=== PATIENT | female | born 1965 | race African-American/Black ===

== ENCOUNTER 2020-07-25 09:12 | Inpatient (IN) | payer OTHER ==
[2020-07-25] VITALS (24 sets, daily range): BP systolic 0–139; BP diastolic 0–93
[~2020-07-25] VITALS: Ht 160 cm; Wt 68.0 kg
[2020-07-25] MEDS ORDERED: Lidocaine 1% Plain 30 ml INJ ONE (09:22)
--- NOTE | 2020-07-25 09:51 | Emergency Room Report ---
History of Present Illness General Chief Complaint: Abnormal Labs Source: Patient, Family Member, EMS Present Illness HPI This patient is brought in by EMS for critically low blood sugar. The patient was unable to give a useful history. Per EMS, the patient had a blood sugar of 31 on their arrival and was sleepy but arousable to answer simple questions. She was given oral glucose and glucagon by EMS. I was able to contact the patient's daughter who lives with her. The daughter reports that her mother was in her normal state of health until November whenever she suffered a bowel obstruction. She was admitted to [facility] and had to undergo bowel surgery. She s tates that since that time she has had difficulty with poor oral intake and failure to thrive. She states that she was released from a rehab facility 2 weeks ago and had been doing well until the last week. She states that over the past week she has started to stop eating again as she had done previously. She states that she had been admitted to [facility] for 3 weeks prior to her stay in the rehab facility for the same issues of not eating. The daughter states that she had a "upper GI"issue but was unable to articulate what type of upper GI issue. The daughter states that there are no other medical problems. The patient herself did complain of some cramping in her legs during her ED course. Otherwise, the patient was arousable but altered. Allergies: Coded Allergies: No Known Allergies (Unverified , 07/25/20) COVID-19 Screening Contact w/high risk pt: No Experienced COVID-19 symptoms?: No COVID-19 Testing performed PATIENT INFORMATION COORDINATOR: No Patient History Past Medical History: see triage record, other - FTT, poor intake, hx of SBO Social History: Denies: smoking, alcohol use, drug use Last Menstrual Period: na Reviewed Nursing Documentation: PMH: Agreed; PSxH: Agreed Nursing Documentation-PMH Past Medical History: No Stated History Review of Systems All Other Systems: negative except mentioned in HPI Physical Exam Vital Signs Date Time Temp Pulse Resp B/P (MAP) Pulse Ox O2 Delivery O2 Flow Rate FiO2 07/25/20 09:05 97.5 127 20 88/62 (71) 98 Room Air Sp02 EP Interpretation: reviewed, normal General Appearance: no apparent distress, GCS 15, lethargic, Chronically Ill Head: normocephalic, atraumatic Eyes: bilateral eye normal inspection, bilateral eye PERRL ENT: hearing grossly normal, normal pharynx, no angioedema, normal voice, other - swollen, peeling lips Neck: normal inspection, full range of motion Respiratory: chest non-tender, lungs clear, normal breath sounds, no respiratory distress, no retraction, no accessory muscle use, speaking full sentences Cardiovascular #1: tachycardia, edema - BLE 3+ pitting edema Gastrointestinal: non tender, soft, no guarding, no rebound Rectal: deferred Musculoskeletal: back normal, normal range of motion, tender, swelling - BLE Neurologic: alert, motor strength/tone normal, sensory intact, responsive, speech normal Psychiatric: judgement/insight normal, memory normal, mood/affect normal, no suicidal/homicidal ideation Skin: other - anasarca Medical Decision Making Diagnostic Impression: Primary Impression: SBO (small bowel obstruction) Additional Impressions: Hypotension Lactic acid acidosis ARF (acute renal failure) Hypothyroid Pancytopenia ER Course This patient is critically ill. On arrival, the patient was hypotensive, altered but would respond appropriately to questions. The staff was having difficulty obtaining a peripheral IV line. Therefore, I placed a triple-lumen central catheter in the patient's IJ for emergency access and profound hypotension. Please see my procedure note. The patient was found to have a small bowel obstruction, severe lactic acidosis, pancytopenia, acute renal failure and hypothyroidism. The patient was given aggressive IV fluids, IV dextrose repeatedly and placed on an IV dextrose drip. The patient remained hypotensive and a Levophed drip was started to maintain blood pressure. Patient was given broad-spectrum antibiotics as a precaution. I am concerned this patient has ischemic bowel related to her small bowel obstruction. An NG tube was placed and the patient was also given IV levothyroxine. Patient has a very poor prognosis. She did remain alert and oriented and without any respiratory difficulty during her ED course. Therefore, patient did not need intubation. The patient also had ulceration of the posterior aspect of her skin consistent with chronic pressure. This patient will be admitted to the ICU. This patient is critically ill. This patient required complex medical decision- making, aggressive intervention, extensive laboratory workup and monitoring. Critical care time: 40 minutes. This patient was evaluated in the context of the global COVID-19 pandemic, which necessitated consideration that the patient might be at risk for infection with the [id number] virus that causes COVID-19. Institutional protocols and algorithms that pertain to the evaluation of patients at risk for COVID-19 and the state of rapid change based on information released by multiple regulatory bodies including the CDC and federal and state organizations. These policies and algorithms were followed during the patient's care in the ED. Laboratory Tests Test 07/25/20 09:55 07/25/20 10:26 07/25/20 10:47 07/25/20 12:18 Sodium Level 134 MMOL/L (136-145) L Potassium Level 3.5 MMOL/L (3.5-5.1) Chloride Level 100 MMOL/L (98-107) Carbon Dioxide Level 17 MMOL/L (21-32) L Anion Gap 17 mmol/L (5-15) H Blood Urea Nitrogen 7 mg/dL (7-18) Creatinine 2.2 MG/DL (0.55-1.30) H Estimated Glomerular Filtration Rate 28.1 mL/min (>60) Glucose Level 299 MG/DL (74-106) H Lactic Acid Level 15.80 mmol/L (0.4-2.0) H Calcium Level 7.1 MG/DL (8.5-10.1) L Phosphorus Level 3.4 MG/DL (2.5-4.9) Magnesium Level 1.6 MG/DL (1.8-2.4) L Ferritin 765 NG/ML (8-388) H Total Bilirubin 6.2 MG/DL (0.2-1.0) H Direct Bilirubin 5.7 MG/DL (0.0-0.3) H Aspartate Amino Transferase (AST) 37 U/L (15-37) Alanine Aminotransferase (ALT) 27 U/L (12-78) Alkaline Phosphatase 286 U/L (46-116) H Lactate Dehydrogenase 211 U/L (81-234) Total Creatine Kinase 21 U/L (26-308) L Creatine Kinase MB 0.7 NG/ML (0.0-3.6) Creatine Kinase MB Relative Index 3.3 Troponin I 0.002 ng/mL (0.000-0.056) C-Reactive Protein, Quantitative 21.0 mg/dL (0.00-0.90) H Pro-B-Type Natriuretic Peptide > 79295 pg/mL (0-125) H Total Protein 2.9 G/DL (6.4-8.2) L Albumin 0.8 G/DL (3.4-5.0) L Globulin 2.1 g/dL Albumin/Globulin Ratio 0.4 (1.0-2.7) L Lipase 10 U/L (73-393) L POC Whole Blood Glucose 160 MG/DL (74-106) H White Blood Count 1.0 K/UL (4.8-10.8) *L Red Blood Count 2.20 M/UL (4.20-5.40) L Hemoglobin 7.5 G/DL (12.0-16.0) L Hematocrit 24.2 % (37.0-47.0) L Mean Corpuscular Volume 110 FL (80-99) H Mean Corpuscular Hemoglobin 33.9 PG (27.0-31.0) H Mean Corpuscular Hemoglobin Concent 30.9 G/DL (32.0-36.0) L Red Cell Distribution Width 20.6 % (11.6-14.8) H Platelet Count 56 K/UL (150-450) L Mean Platelet Volume 7.9 FL (6.5-10.1) Neutrophils (%) (Auto) % (45.0-75.0) Lymphocytes (%) (Auto) % (20.0-45.0) Monocytes (%) (Auto) % (1.0-10.0) Eosinophils (%) (Auto) % (0.0-3.0) Basophils (%) (Auto) % (0.0-2.0) Differential Total Cells Counted 100 Neutrophils % (Manual) 13 % (45-75) L Lymphocytes % (Manual) 68 % (20-45) H Monocytes % (Manual) 10 % (1-10) Eosinophils % (Manual) 0 % (0-3) Basophils % (Manual) 0 % (0-2) Metamyelocytes % 1 % (0-0) H Band Neutrophils 8 % (0-8) Nucleated Red Blood Cells 22 /100 WBC Platelet Estimate Decreased L Platelet Morphology Normal Polychromasia 1+ Hypochromasia 2+ Poikilocytosis 1+ Anisocytosis 2+ Macrocytosis 3+ Prothrombin Time 27.4 SEC (9.30-11.50) H Prothrombin Time INR 2.7 (0.9-1.1) H Activated Partial Thromboplast Time 80 SEC (23-33) H D-Dimer 1.95 mg/L FEU (0.00-0.49) H Thyroid Stimulating Hormone (TSH) 0.199 uiU/mL (0.358-3.740) Free Thyroxine 0.20 NG/DL (0.76-1.46) L Urine Color Brown Urine Appearance Slightly cloudy Urine pH 5 (4.5-8.0) Urine Specific [place] 1.010 (1.005-1.035) Urine Protein 2+ (NEGATIVE) H Urine Glucose (UA) Negative (NEGATIVE) Urine Ketones Negative (NEGATIVE) Urine Blood 1+ (NEGATIVE) H Urine Nitrite Negative (NEGATIVE) Urine Bilirubin 2+ (NEGATIVE) H Urine Ictotest Positive (NEGATIVE) Urine Urobilinogen 1 MG/DL (0.0-1.0) H Urine Leukocyte Esterase 1+ (NEGATIVE) H Urine RBC 2-4 /HPF (0 - 2) H Urine WBC 2-4 /HPF (0 - 2) Urine Squamous Epithelial Cells Moderate /LPF (NONE/OCC) H Urine Bacteria Few /HPF (NONE) Urine Hyaline Casts 2-4 /LPF (NONE) H Urine Mucus Few /LPF (NONE/OCC) H Test 07/25/20 13:01 Lactic Acid Level Pending Microbiology Date/Time Source Procedure Growth Status 07/25/20 09:55 Nasal Nares - Final Complete 07/25/20 09:55 Nasal Nares - Final Complete 07/25/20 09:55 Nasopharynx SARS-CoV-2 RdRp Gene Assay - Final Complete EKG Diagnostic Results Rate: tachycardiac Rhythm: other - A.flutter ST Segments: other - NSST findings Other Impression A.flutter Rhythm Strip Diag. Results EP Interpretation: yes Rate: 120's Rhythm: no ectopy, other - S.tachycardia Chest X-Ray Diagnostic Results Chest X-Ray Diagnostic Results : Chest X-Ray Ordered: Yes # of Views/Limited/Complete: 1 View Indication: Other - Line placement EP Interpretation: Yes Interpretation: no consolidation, no effusion, no pneumothorax, no acute cardiopulmonary disease, other - Line deep but in R. heart. Impression: No acute disease Electronically Signed by: Jacqui Arita, CT/MRI/US Diagnostic Results CT/MRI/US Diagnostic Results : Imaging Test Ordered: CT abd/pelvis Impression IMPRESSION: SMALL BOWEL OBSTRUCTION. SEVERE FATTY LIVER. SUBCUTANEOUS SOFT TISSUE EDEMA ALONG THE FLANKS AND IN THE ABDOMINAL WALL S UGGESTIVE OF ANASARCA. Last Vital Signs Date Time Temp Pulse Resp B/P (MAP) Pulse Ox O2 Delivery O2 Flow Rate FiO2 07/25/20 09:05 97.5 127 20 88/62 (71) 98 Room Air Disposition: ADMITTED INPATIENT Condition: Critical Scripts Unable to Obtain Active Prescriptions or Reported Meds Jacqui Arita DO Jul 25, 2020 09:51
[2020-07-25 10:46] LABS: ANION GAP 17 mmol/L (5-15); BLOOD UREA NITROGEN 7 mg/dL (7-18); CALCIUM 7.1 MG/DL (8.5-10.1); CARBON DIOXIDE 17 MMOL/L (21-32); CHLORIDE 100 MMOL/L (98-107); CREATININE 2.2 MG/DL (0.55-1.30); POTASSIUM 3.5 MMOL/L (3.5-5.1); SODIUM 134 MMOL/L (136-145)
--- NOTE | 2020-07-25 10:55 | Diagnostic Imaging Report ---
EXAM: CT CT Abdomen Pelvis WO Contrast INDICATION: Dominant pain. COMPARISON: None TECHNIQUE: Axial images were obtained through the abdomen pelvis without intravenous contrast. Sagittal and coronal reformats are generated. All CT scans at this facility are performed using dose modulation techniques as appropriate to a performed exam including the following: automated exposure control with adjustment of the mA and/or kV according to patient size. RADIATION DOSE: CTDIvol: 6.8 mGy DLP: 371.8 mGy-cm Dose information generated by the CT scanner is available in PACS. FINDINGS: The lung bases are clear. There is diffuse fatty liver. The spleen is homogeneous. Gallbladder is without sludge or stone and there is no wall thickening. The pancreas is unremarkable. Adrenals are normal in morphology. The kidneys are normal in size, shape and axis. Postoperative changes of the stomach noted. Proximal small bowel is quite distended with air-fluid levels. There are also feculent material noted in the more distal distended loops. There is a transition to nondistended small bowel seen distally. Findings suggest small bowel obstruction. The colon is also nondistended with average amount of stool. The appendix is not visualized. There is no free fluid or free air. No pathologic adenopathy demonstrated. Urinary bladder appears unremarkable. There is an IUD in the uterus. Soft tissue edema noted along the flanks and in the abdominal wall perhaps some anasarca. IMPRESSION: SMALL BOWEL OBSTRUCTION. SEVERE FATTY LIVER. SUBCUTANEOUS SOFT TISSUE EDEMA ALONG THE FLANKS AND IN THE ABDOMINAL WALL SUGGESTIVE OF ANASARCA.
[2020-07-25 11:01] LABS: ALANINE AMINOTRANSFERASE 27 U/L (12-78); ALBUMIN 0.8 G/DL (3.4-5.0); ALBUMIN/GLOBULIN RATIO 0.4 (1.0-2.7); ALKALINE PHOSPHATASE 286 U/L (46-116); ASPARTATE AMINO TRANSFERASE 37 U/L (15-37); BILIRUBIN,TOTAL 6.2 MG/DL (0.2-1.0); CKMB 0.7 NG/ML (0.0-3.6); CREATINE KINASE 21 U/L (26-308); LACTATE DEHYDROGENASE 211 U/L (81-234); PHOSPHORUS 3.4 MG/DL (2.5-4.9)
[2020-07-25 11:09] LABS: HEMATOCRIT 24.2 % (37.0-47.0); HEMOGLOBIN 7.5 G/DL (12.0-16.0); MEAN CORPUSCULAR VOLUME 110 FL (80-99); PLATELET COUNT 56 K/UL (150-450); RED CELL DISTRIBUTION WIDTH 20.6 % (11.6-14.8)
[2020-07-25 11:16] LABS: INR 2.7 (0.9-1.1)
[2020-07-25 11:29] LABS: FERRITIN 765 NG/ML (8-388)
[2020-07-25 11:30] LABS: BILIRUBIN,DIRECT 5.7 MG/DL (0.0-0.3)
--- NOTE | 2020-07-25 11:36 | Diagnostic Imaging Report ---
Indication: Shortness of breath Technique: One view of the chest Comparison: none Findings: And right jugular central venous catheter, tip of which projects fairly deep within the right atrium. There are some atelectatic changes in the bilateral perihilar regions. No definite infiltrates, effusions, congestion. The heart size is normal. There is no pneumothorax Impression: Right jugular central venous catheter, tip fairly deep in the right atrium No acute process
[2020-07-25] MEDS ORDERED: D5 1/2NS 1,000 ML IV SCH ×2 (12:30→13:30)
[2020-07-25 12:51] LABS: APPEARANCE,URINE SLIGHTLY CLOUDY; BILIRUBIN, URINE 2+ (NEGATIVE); COLOR,URINE BROWN; GLUCOSE, URINE (UA) NEGATIVE (NEGATIVE); KETONES,URINE NEGATIVE (NEGATIVE); LEUKOCYTE ESTERASE ,URINE 1+ (NEGATIVE); NITRITE,URINE NEGATIVE (NEGATIVE); PH,URINE 5 (4.5-8.0); PROTEIN,URINE 2+ (NEGATIVE); UROBILINOGEN,URINE 1 MG/DL (0.0-1.0)
[2020-07-25] MEDS ORDERED: Nitroglycerin Subl 0.4mg tab SL PRN (13:30)
[2020-07-25] MEDS ORDERED: Miralax 17gm pkt ORAL PRN (13:30)
[2020-07-25] MEDS ORDERED: Phytonadione 10 MG in D5W 55 ML IVPB SCH (13:33)
--- NOTE | 2020-07-25 13:52 | Consultation ---
History of Present Illness General Date patient seen: Jul 25, 2020 Reason for Hospitalization: Abnormal Labs Present Illness HPI This is a 55-year-old female with complex history who presented with hypoglycemia and identified to have severely abnormal labs and imaging. Patient unable to provide history or participate examination and therefore daughter was contacted. The daughter reports that her mother was in her normal state of health until November whenever she suffered a bowel obstruction. She was admitted to [facility] and unsure if she had underwent bowel surgery. She states that since that time she has had difficulty with poor oral intake and failure to thrive. She states that she was released from a rehab facility 2 weeks ago and had been doing well until the last week. She states that over the past week she has started to stop eating again as she had done previously. She states that she had been admitted to [facility] for 3 weeks prior to her stay in the rehab facility for the same issues of not eating. Surgery called to evaluate assist with care. Patient seen, patient eval, chart reviewed. NG tube placed. Allergies: Coded Allergies: No Known Allergies (Unverified , 07/25/20) COVID-19 Screening Contact w/high risk pt: No Experienced COVID-19 symptoms?: No Medication History Unable to Obtain Active Prescriptions or Reported Meds Patient History History Provided By: Patient, Medical Record, PMD Healthcare decision maker Resuscitation status Advanced Directive on File Past Medical/Surgical History Past Medical/Surgical History: (1) Pancytopenia (2) SBO (small bowel obstruction) (3) Hypotension (4) ARF (acute renal failure) (5) Hypothyroid (6) Lactic acid acidosis Review of Systems Review of Symptoms General ROS: no weight loss or fever Psychological ROS: no depression or mood changes, no memory loss Ophthalmic ROS: no visual changes or eye irritation ENT ROS: no nasal congestion, hearing loss, dizziness Allergy and Immunology ROS: no allergic symptoms or urticaria Hematological and Lymphatic ROS: no swollen glands, unusual bleeding or bruising Endocrine ROS: no polyuria, polydipsia, weight changes, temperature intolerance Respiratory ROS: no cough, shortness of breath, or wheezing Cardiovascular ROS: no chest pain or dyspnea on exertion Gastrointestinal ROS: denies abdominal pain, bright red blood in stool. Musculoskeletal ROS: no myalgias or arthralgias Neurological ROS: no TIA or stroke symptoms Dermatological ROS: no new or changing skin lesions, rashes or pruritis limited Physical Exam Physical Exam General appearance: alert, cooperative, no distress, appears stated age Head: Normocephalic, without obvious abnormality, atraumatic Eyes: conjunctivae/corneas clear. PERRL, EOM's intact. Fundi benign Throat: Lips, mucosa, and tongue normal. Teeth and gums normal Neck: supple, symmetrical, trachea midline, no adenopathy, thyroid: not enlarged, symmetric, no tenderness/mass/nodules, no carotid bruit and no JVD Lungs: clear to auscultation bilaterally Heart: regular rate and rhythm, S1, S2 normal, no murmur, click, rub or gallop Abdomen: firm, discomfort/general-tender. Bowel sounds decreased No masses, no organomegaly Extremities: extremities normal, atraumatic, no cyanosis or edema Pulses: 2+ and symmetric Skin: Skin color, texture, turgor normal. No rashes or lesions Neurologic: Grossly normal Last 24 Hour Vital Signs Date Time Temp Pulse Resp B/P (MAP) Pulse Ox O2 Delivery O2 Flow Rate FiO2 07/25/20 12:08 100/65 07/25/20 12:03 67/30 07/25/20 11:58 69/31 07/25/20 11:53 85/70 07/25/20 09:20 97.5 120 20 88/45 98 Nasal Cannula 4.0 07/25/20 09:05 97.5 127 20 88/62 (71) 98 Room Air Laboratory Tests Test 07/25/20 09:55 07/25/20 10:26 07/25/20 10:47 07/25/20 12:18 Sodium Level 134 MMOL/L (136-145) L Potassium Level 3.5 MMOL/L (3.5-5.1) Chloride Level 100 MMOL/L (98-107) Carbon Dioxide Level 17 MMOL/L (21-32) L Anion Gap 17 mmol/L (5-15) H Blood Urea Nitrogen 7 mg/dL (7-18) Creatinine 2.2 MG/DL (0.55-1.30) H Estimat Glomerular Filtration Rate 28.1 mL/min (>60) Glucose Level 299 MG/DL (74-106) H Lactic Acid Level 15.80 mmol/L (0.4-2.0) H Calcium Level 7.1 MG/DL (8.5-10.1) L Phosphorus Level 3.4 MG/DL (2.5-4.9) Magnesium Level 1.6 MG/DL (1.8-2.4) L Ferritin 765 NG/ML (8-388) H Total Bilirubin 6.2 MG/DL (0.2-1.0) H Direct Bilirubin 5.7 MG/DL (0.0-0.3) H Aspartate Amino Transf (AST/SGOT) 37 U/L (15-37) Alanine Aminotransferase (ALT/SGPT) 27 U/L (12-78) Alkaline Phosphatase 286 U/L (46-116) H Lactate Dehydrogenase 211 U/L (81-234) Total Creatine Kinase 21 U/L (26-308) L Creatine Kinase MB 0.7 NG/ML (0.0-3.6) Creatine Kinase MB Relative Index 3.3 Troponin I 0.002 ng/mL (0.000-0.056) C-Reactive Protein, Quantitative 21.0 mg/dL (0.00-0.90) H Pro-B-Type Natriuretic Peptide > 39927 pg/mL (0-125) H Total Protein 2.9 G/DL (6.4-8.2) L Albumin 0.8 G/DL (3.4-5.0) L Globulin 2.1 g/dL Albumin/Globulin Ratio 0.4 (1.0-2.7) L Lipase 10 U/L (73-393) L POC Whole Blood Glucose 160 MG/DL (74-106) H White Blood Count 1.0 K/UL (4.8-10.8) *L Red Blood Count 2.20 M/UL (4.20-5.40) L Hemoglobin 7.5 G/DL (12.0-16.0) L Hematocrit 24.2 % (37.0-47.0) L Mean Corpuscular Volume 110 FL (80-99) H Mean Corpuscular Hemoglobin 33.9 PG (27.0-31.0) H Mean Corpuscular Hemoglobin Concent 30.9 G/DL (32.0-36.0) L Red Cell Distribution Width 20.6 % (11.6-14.8) H Platelet Count 56 K/UL (150-450) L Mean Platelet Volume 7.9 FL (6.5-10.1) Neutrophils (%) (Auto) % (45.0-75.0) Lymphocytes (%) (Auto) % (20.0-45.0) Monocytes (%) (Auto) % (1.0-10.0) Eosinophils (%) (Auto) % (0.0-3.0) Basophils (%) (Auto) % (0.0-2.0) Differential Total Cells Counted 100 Neutrophils % (Manual) 13 % (45-75) L Lymphocytes % (Manual) 68 % (20-45) H Monocytes % (Manual) 10 % (1-10) Eosinophils % (Manual) 0 % (0-3) Basophils % (Manual) 0 % (0-2) Metamyelocytes % 1 % (0-0) H Band Neutrophils 8 % (0-8) Nucleated Red Blood Cells 22 /100 WBC Platelet Estimate Decreased L Platelet Morphology Normal Polychromasia 1+ Hypochromasia 2+ Poikilocytosis 1+ Anisocytosis 2+ Macrocytosis 3+ Prothrombin Time 27.4 SEC (9.30-11.50) H Prothromb Time International Ratio 2.7 (0.9-1.1) H Activated Partial Thromboplast Time 80 SEC (23-33) H D-Dimer 1.95 mg/L FEU (0.00-0.49) H Thyroid Stimulating Hormone (TSH) 0.199 uiU/mL (0.358-3.740) Free Thyroxine 0.20 NG/DL (0.76-1.46) L Urine Color Brown Urine Appearance Slightly cloudy Urine pH 5 (4.5-8.0) Urine Specific [place] 1.010 (1.005-1.035) Urine Protein 2+ (NEGATIVE) H Urine Glucose (UA) Negative (NEGATIVE) Urine Ketones Negative (NEGATIVE) Urine Blood 1+ (NEGATIVE) H Urine Nitrite Negative (NEGATIVE) Urine Bilirubin 2+ (NEGATIVE) H Urine Ictotest Positive (NEGATIVE) Urine Urobilinogen 1 MG/DL (0.0-1.0) H Urine Leukocyte Esterase 1+ (NEGATIVE) H Urine RBC 2-4 /HPF (0 - 2) H Urine WBC 2-4 /HPF (0 - 2) Urine Squamous Epithelial Cells Moderate /LPF (NONE/OCC) H Urine Bacteria Few /HPF (NONE) Urine Hyaline Casts 2-4 /LPF (NONE) H Urine Mucus Few /LPF (NONE/OCC) H Test 07/25/20 13:01 Lactic Acid Level Pending Microbiology Date/Time Source Procedure Growth Status 07/25/20 09:55 Nasal Nares - Final Complete 07/25/20 09:55 Nasal Nares - Final Complete 07/25/20 09:55 Nasopharynx SARS-CoV-2 RdRp Gene Assay - Final Complete Height (Feet): 5 Height (Inches): 3.00 Weight (Pounds): 150 Medications Current Medications Medications (Trade) Dose Ordered Sig/Kiana Route PRN Reason Start Time Stop Time Status Last Admin Dose Admin Acetaminophen (Tylenol) 650 mg Q4H PRN ORAL fever 07/25/20 13:30 08/24/20 13:29 Dextrose (Dextrose 50%) 25 ml Q30M PRN IV Hypoglycemia 07/25/20 13:30 10/23/20 13:29 Dextrose (Dextrose 50%) 50 ml Q30M PRN IV Hypoglycemia 07/25/20 13:30 10/23/20 13:29 Dextrose/Sodium Chloride 1,000 ml @ 125 mls/hr Q8H IV 07/25/20 12:30 08/24/20 12:29 07/25/20 12:50 Diphenhydramine HCl (Benadryl) 25 mg Q6H PRN ORAL Itching/Pruritis 07/25/20 13:30 08/24/20 13:29 Nitroglycerin (Ntg) 0.4 mg Q5M X 3 DOSES PRN SL Prn Chest Pain 07/25/20 13:30 08/24/20 13:29 Norepinephrine Bitartrate 8 mg/ Dextrose 250 ml @ 0 mls/hr Q24H IV 07/25/20 11:45 07/28/20 11:44 07/25/20 11:53 Ondansetron HCl (Zofran) 4 mg Q6H PRN IVP Nausea & Vomiting 07/25/20 13:30 08/24/20 13:29 Pantoprazole (Protonix) 40 mg DAILY IVP 07/26/20 09:00 08/25/20 08:59 Phytonadione 10 mg/Dextrose 56 ml @ 112 mls/hr ONCE IVPB 07/25/20 13:33 07/25/20 16:00 Polyethylene Glycol (Miralax) 17 gm HSPRN PRN ORAL Constipation 07/25/20 13:30 08/24/20 13:29 Potassium Chloride 10 meq/ Dextrose/Sodium Chloride 1,005 ml @ 150 mls/hr Q6H42M IV 07/25/20 13:30 08/24/20 13:29 UNV Temazepam (Restoril) 15 mg HSPRN PRN ORAL Insomnia 07/25/20 13:30 08/01/20 13:29 Assessment/Plan Problem List: (1) Pancytopenia ICD Codes: D61.818 - Other pancytopenia SNOMED: 087684785 (2) SBO (small bowel obstruction) Assessment & Plan: 55-year-old female with small bowel obstruction. CT reviewed prior gastric surgical changes identified and small bowel noted likely obstructive in nature. Abdomen is firm and discomfort but patient is limited in providing examination or history. Labs noted pancytopenia lactic acidosis. Platelets 58,000. Patient needs significant resuscitation prior to consi derations of any intervention. She is very high risk for surgical intervention and in current state will unlikely survive a major operation. There is always concern for bowel ischemia given her lactic acidosis but this could also be from severe dehydration and sepsis. Her examination is not very reliable though she does not complain of any discomfort or pain when spoken to and giving minimally responses on examination her abdomen is discomfort but does not seem peritonitis. Admit to intensive care unit n.p.o. iv fluids iv abx ng tube kub am will follow with exam and recs thank you There is diffuse fatty liver. The spleen is homogeneous. Gallbladder is without sludge or stone and there is no wall thickening. The pancreas is unremarkable. Adrenals are normal in morphology. The kidneys are normal in size, shape and axis. Postoperative changes of the stomach noted. Proximal small bowel is quite distended with air-fluid levels. There are also feculent material noted in the more distal distended loops. There is a transition to nondistended small bowel seen distally. Findings suggest small bowel obstruction. The colon is also nondistended with average amount of stool. The appendix is not visualized. There is no free fluid or free air. No pathologic adenopathy demonstrated. Urinary bladder appears unremarkable. There is an IUD in the uterus. Soft tissue edema noted along the flanks and in the abdominal wall perhaps some anasarca. IMPRESSION: SMALL BOWEL OBSTRUCTION. SEVERE FATTY LIVER. SUBCUTANEOUS SOFT TISSUE EDEMA ALONG THE FLANKS AND IN THE ABDOMINAL WALL SUGGESTIVE OF ANASARCA. ICD Codes: K56.609 - Unspecified intestinal obstruction, unspecified as to partial versus complete obstruction SNOMED: 827233595 (3) Hypotension ICD Codes: I95.9 - Hypotension, unspecified SNOMED: 62768446 (4) ARF (acute renal failure) ICD Codes: N17.9 - Acute kidney failure, unspecified SNOMED: 78738636 (5) Hypothyroid ICD Codes: E03.9 - Hypothyroidism, unspecified SNOMED: 91070244 (6) Lactic acid acidosis ICD Codes: E87.2 - Acidosis SNOMED: 04077440 Daniel Ceballos Jul 25, 2020 13:52
[2020-07-25] MEDS ORDERED: Sodium Bicarbonate 50ml Carp IV ONE (14:30)
--- NOTE | 2020-07-25 14:39 | Consultation ---
History of Present Illness General Date patient seen: Jul 25, 2020 Chief Complaint: Abnormal Labs Present Illness HPI 55 y/o F wtih hx of SBO November 2019 presented to ED on 07/25/20 with months of intermittent poor PO intake and FTT since she had a bowel obstruction back in November this year. She was on a Rehab facility and was released 2 weeks ago and was doing well until last week where she stop eating. Upon admission, patient was found to be hypoglycemic to 31, pancytopenic, lethargic Allergies: Coded Allergies: No Known Allergies (Unverified , 07/25/20) Medication History Unable to Obtain Active Prescriptions or Reported Meds Patient History Healthcare decision maker Resuscitation status Advanced Directive on File Patient History Narrative Pmhx: as above Shx: Denies: smoking, alcohol use, drug use Fhx: non contributory Review of Systems All Other Systems: negative except mentioned in HPI Physical Exam Physical Exam Narrative General appearance: alert, cooperative, no distress, appears stated age Head: Normocephalic, without obvious abnormality, atraumatic Eyes: conjunctivae/corneas clear. PERRL, EOM's intact. Fundi benign Throat: Lips, mucosa, and tongue normal. Teeth and gums normal Neck: supple, symmetrical, trachea midline, no adenopathy, thyroid: not enlarged, symmetric, no tenderness/mass/nodules, no carotid bruit and no JVD Lungs: clear to auscultation bilaterally Heart: regular rate and rhythm, S1, S2 normal, no murmur, click, rub or gallop Abdomen: firm, discomfort/general-tender. Bowel sounds decreased No masses, no organomegaly Extremities: extremities normal, atraumatic, no cyanosis or edema Pulses: 2+ and symmetric Skin: Skin color, texture, turgor normal. No rashes or lesions Neurologic: Grossly normal Last 24 Hour Vital Signs Date Time Temp Pulse Resp B/P (MAP) Pulse Ox O2 Delivery O2 Flow Rate FiO2 07/25/20 13:05 97.5 98 20 68/35 96 Nasal Cannula 4.0 07/25/20 12:08 100/65 07/25/20 12:03 67/30 07/25/20 11:58 69/31 07/25/20 11:53 85/70 07/25/20 11:30 97.7 99 20 72/45 98 Nasal Cannula 4.0 07/25/20 10:20 97.5 115 20 75/42 96 Nasal Cannula 4.0 07/25/20 09:20 97.5 120 20 88/45 98 Nasal Cannula 4.0 07/25/20 09:05 97.5 127 20 88/62 (71) 98 Room Air Laboratory Tests Test 07/25/20 09:55 07/25/20 10:26 07/25/20 10:47 07/25/20 12:18 Sodium Level 134 MMOL/L (136-145) L Potassium Level 3.5 MMOL/L (3.5-5.1) Chloride Level 100 MMOL/L (98-107) Carbon Dioxide Level 17 MMOL/L (21-32) L Anion Gap 17 mmol/L (5-15) H Blood Urea Nitrogen 7 mg/dL (7-18) Creatinine 2.2 MG/DL (0.55-1.30) H Estimat Glomerular Filtration Rate 28.1 mL/min (>60) Glucose Level 299 MG/DL (74-106) H Lactic Acid Level 15.80 mmol/L (0.4-2.0) H Uric Acid Pending Calcium Level 7.1 MG/DL (8.5-10.1) L Phosphorus Level 3.4 MG/DL (2.5-4.9) Magnesium Level 1.6 MG/DL (1.8-2.4) L Ferritin 765 NG/ML (8-388) H Total Bilirubin 6.2 MG/DL (0.2-1.0) H Direct Bilirubin 5.7 MG/DL (0.0-0.3) H Aspartate Amino Transf (AST/SGOT) 37 U/L (15-37) Alanine Aminotransferase (ALT/SGPT) 27 U/L (12-78) Alkaline Phosphatase 286 U/L (46-116) H Lactate Dehydrogenase 211 U/L (81-234) Total Creatine Kinase 21 U/L (26-308) L Creatine Kinase MB 0.7 NG/ML (0.0-3.6) Creatine Kinase MB Relative Index 3.3 Troponin I 0.002 ng/mL (0.000-0.056) C-Reactive Protein, Quantitative 21.0 mg/dL (0.00-0.90) H Pro-B-Type Natriuretic Peptide > 79216 pg/mL (0-125) H Total Protein 2.9 G/DL (6.4-8.2) L Albumin 0.8 G/DL (3.4-5.0) L Globulin 2.1 g/dL Albumin/Globulin Ratio 0.4 (1.0-2.7) L Lipase 10 U/L (73-393) L POC Whole Blood Glucose 160 MG/DL (74-106) H White Blood Count 1.0 K/UL (4.8-10.8) *L Red Blood Count 2.20 M/UL (4.20-5.40) L Hemoglobin 7.5 G/DL (12.0-16.0) L Hematocrit 24.2 % (37.0-47.0) L Mean Corpuscular Volume 110 FL (80-99) H Mean Corpuscular Hemoglobin 33.9 PG (27.0-31.0) H Mean Corpuscular Hemoglobin Concent 30.9 G/DL (32.0-36.0) L Red Cell Distribution Width 20.6 % (11.6-14.8) H Platelet Count 56 K/UL (150-450) L Mean Platelet Volume 7.9 FL (6.5-10.1) Neutrophils (%) (Auto) % (45.0-75.0) Lymphocytes (%) (Auto) % (20.0-45.0) Monocytes (%) (Auto) % (1.0-10.0) Eosinophils (%) (Auto) % (0.0-3.0) Basophils (%) (Auto) % (0.0-2.0) Differential Total Cells Counted 100 Neutrophils % (Manual) 13 % (45-75) L Lymphocytes % (Manual) 68 % (20-45) H Monocytes % (Manual) 10 % (1-10) Eosinophils % (Manual) 0 % (0-3) Basophils % (Manual) 0 % (0-2) Metamyelocytes % 1 % (0-0) H Band Neutrophils 8 % (0-8) Nucleated Red Blood Cells 22 /100 WBC Platelet Estimate Decreased L Platelet Morphology Normal Polychromasia 1+ Hypochromasia 2+ Poikilocytosis 1+ Anisocytosis 2+ Macrocytosis 3+ Prothrombin Time 27.4 SEC (9.30-11.50) H Prothromb Time International Ratio 2.7 (0.9-1.1) H Activated Partial Thromboplast Time 80 SEC (23-33) H D-Dimer 1.95 mg/L FEU (0.00-0.49) H Thyroid Stimulating Hormone (TSH) 0.199 uiU/mL (0.358-3.740) Free Thyroxine 0.20 NG/DL (0.76-1.46) L Urine Color Brown Urine Appearance Slightly cloudy Urine pH 5 (4.5-8.0) Urine Specific [place] 1.010 (1.005-1.035) Urine Protein 2+ (NEGATIVE) H Urine Glucose (UA) Negative (NEGATIVE) Urine Ketones Negative (NEGATIVE) Urine Blood 1+ (NEGATIVE) H Urine Nitrite Negative (NEGATIVE) Urine Bilirubin 2+ (NEGATIVE) H Urine Ictotest Positive (NEGATIVE) Urine Urobilinogen 1 MG/DL (0.0-1.0) H Urine Leukocyte Esterase 1+ (NEGATIVE) H Urine RBC 2-4 /HPF (0 - 2) H Urine WBC 2-4 /HPF (0 - 2) Urine Squamous Epithelial Cells Moderate /LPF (NONE/OCC) H Urine Bacteria Few /HPF (NONE) Urine Hyaline Casts 2-4 /LPF (NONE) H Urine Mucus Few /LPF (NONE/OCC) H Urine Eosinophils Pending Urine Random Sodium 42 mmol/L (20-110) Urine Potassium Timed 27 mmol/L (12-62) Test 07/25/20 13:01 Lactic Acid Level 15.60 mmol/L (0.66-2.22) H Microbiology Date/Time Source Procedure Growth Status 07/25/20 09:55 Nasal Nares - Final Complete 07/25/20 09:55 Nasal Nares - Final Complete 07/25/20 09:55 Nasopharynx SARS-CoV-2 RdRp Gene Assay - Final Complete Height (Feet): 5 Height (Inches): 3.00 Weight (Pounds): 150 Medications Current Medications Medications (Trade) Dose Ordered Sig/Kiana Route PRN Reason Start Time Stop Time Status Last Admin Dose Admin Acetaminophen (Tylenol) 650 mg Q4H PRN ORAL fever 07/25/20 13:30 08/24/20 13:29 Dextrose (Dextrose 50%) 25 ml Q30M PRN IV Hypoglycemia 07/25/20 13:30 10/23/20 13:29 Dextrose (Dextrose 50%) 50 ml Q30M PRN IV Hypoglycemia 07/25/20 13:30 10/23/20 13:29 Dextrose/Sodium Chloride 1,000 ml @ 125 mls/hr Q8H IV 07/25/20 12:30 08/24/20 12:29 07/25/20 12:50 Diphenhydramine HCl (Benadryl) 25 mg Q6H PRN ORAL Itching/Pruritis 07/25/20 13:30 08/24/20 13:29 Nitroglycerin (Ntg) 0.4 mg Q5M X 3 DOSES PRN SL Prn Chest Pain 07/25/20 13:30 08/24/20 13:29 Norepinephrine Bitartrate 8 mg/ Dextrose 250 ml @ 0 mls/hr Q24H IV 07/25/20 11:45 07/28/20 11:44 07/25/20 11:53 Ondansetron HCl (Zofran) 4 mg Q6H PRN IVP Nausea & Vomiting 07/25/20 13:30 08/24/20 13:29 Pantoprazole (Protonix) 40 mg DAILY IVP 07/26/20 09:00 08/25/20 08:59 Phytonadione 10 mg/Dextrose 56 ml @ 112 mls/hr ONCE IVPB 07/25/20 13:33 07/25/20 16:00 Polyethylene Glycol (Miralax) 17 gm HSPRN PRN ORAL Constipation 07/25/20 13:30 08/24/20 13:29 Potassium Chloride 10 meq/ Dextrose/Sodium Chloride 1,005 ml @ 150 mls/hr Q6H42M IV 07/25/20 13:30 08/24/20 13:29 UNV Sodium Bicarbonate (Sodium Bicarbonate) 50 ml ONCE ONCE IV 07/25/20 14:30 07/25/20 14:31 Sodium Chloride 1,000 ml @ 999 mls/hr Q1H1M ONCE IV 07/25/20 14:30 07/25/20 15:30 Temazepam (Restoril) 15 mg HSPRN PRN ORAL Insomnia 07/25/20 13:30 08/01/20 13:29 Assessment/Plan Assessment/Plan: Abx: None Assessment: COVID19 neg -07/25 rapid COVID PCR neg CXR: no acute disease Influenza scree neg Septic Shock- suspect Staphylococcal toxic shock vs staphyloccal scalded syndr ome given desquamating lesions on palms, soles, and fold areas, mucosa Afebrile Pancytopenia R/o probable bacteremia -u/a no pyuria SBO -CT abd/p: SMALL BOWEL OBSTRUCTION. SEVERE FATTY LIVER.SUBCUTANEOUS SOFT TISS UE EDEMA ALONG THE FLANKS AND IN THE ABDOMINAL WALL SUGGESTIVE OF ANASARCA. Hyperbilirubinemia, Direct (AST and ALT normal) [facility] FTT Severe hypoglycemia (upon admission) hx of SBO November 2019 Plan: -Start empiric Daptomycin, Meropenem and Micafungin -f/u cx -Monitor CBC/CMP, temperatures -HIV ab screen and VL, Acute hep panel, RPR -Gen sx , Renal, Pulm f/u -ICU care -aspiration precautions -wound care per surgical team Thank you for this consultation. Will continue to follow along with you. Discussed with RN and Dr Ceballos. Yaquelin Lozano M.D. Jul 25, 2020 14:39
--- NOTE | 2020-07-25 15:55 | Diagnostic Imaging Report ---
Indication: Nasogastric tube placement. Technique: Supine view of the abdomen Comparison: No comparison plain radiographs. Reference made to CT scan of earlier the same day Findings: Tip of a nasogastric tube projects in the stomach. Left upper quadrant small bowel loops are dilated, similar to the flower grower film of the previous CT scan. Impression: Satisfactory nasogastric intubation Dilated small bowel loops, demonstrated also on prior CT scan and thought likely be related to small bowel obstruction
[2020-07-25] MEDS ORDERED: Meropenem 1 GM in NS 55 ML IVPB SCH ×2 (16:00→17:00)
[2020-07-25] MEDS ORDERED: Norepinephrine Bitartrate 16 MG in D5W 500ml 484 ML IV SCH (16:00)
--- NOTE | 2020-07-25 16:20 | General Progress Note ---
Subjective ROS Limited/Unobtainable: No Allergies: Coded Allergies: No Known Allergies (Unverified , 07/25/20) Objective Last 24 Hour Vital Signs Date Time Temp Pulse Resp B/P (MAP) Pulse Ox O2 Delivery O2 Flow Rate FiO2 07/25/20 14:54 97.5 100 20 82/65 96 Nasal Cannula 4.0 07/25/20 14:54 97.5 98 20 82/67 96 Nasal Cannula 4.0 07/25/20 14:32 52/28 07/25/20 13:05 97.5 98 20 68/35 96 Nasal Cannula 4.0 07/25/20 12:08 100/65 07/25/20 12:03 67/30 07/25/20 11:58 69/31 07/25/20 11:53 85/70 07/25/20 11:30 97.7 99 20 72/45 98 Nasal Cannula 4.0 07/25/20 10:20 97.5 115 20 75/42 96 Nasal Cannula 4.0 07/25/20 09:20 97.5 120 20 88/45 98 Nasal Cannula 4.0 07/25/20 09:05 97.5 127 20 88/62 (71) 98 Room Air Laboratory Tests 07/25/20 09:55: Sodium Level 134L, Potassium Level 3.5, Chloride Level 100, Carbon Dioxide Level 17L, Anion Gap 17H, Blood Urea Nitrogen 7, Creatinine 2.2H, Estimat Glomerular Filtration Rate 28.1, Glucose Level 299H, Lactic Acid Level 15.80H, Uric Acid 8.7H, Calcium Level 7.1L, Phosphorus Level 3.4, Magnesium Level 1.6L, Ferritin 765H, Total Bilirubin 6.2H, Direct Bilirubin 5.7H, Aspartate Amino Transf (AST/SGOT) 37, Alanine Aminotransferase (ALT/SGPT) 27, Alkaline Phosphatase 286H , Lactate Dehydrogenase 211, Total Creatine Kinase 21L, Creatine Kinase MB 0.7, Creatine Kinase MB Relative Index 3.3, Troponin I 0.002, C-Reactive Protein, Quantitative 21.0H, Pro-B-Type Natriuretic Peptide > 71488G, Total Protein 2.9L, Albumin 0.8L, Globulin 2.1, Albumin/Globulin Ratio 0.4L, Lipase 10L 07/25/20 10:26: POC Whole Blood Glucose 160H 07/25/20 10:47: White Blood Count 1.0*L, Red Blood Count 2.20L, Hemoglobin 7.5L, Hematocrit 2 4.2L, Mean Corpuscular Volume 110H, Mean Corpuscular Hemoglobin 33.9H, Mean Corpuscular Hemoglobin Concent 30.9L, Red Cell Distribution Width 20.6H, Pl atelet Count 56L, Mean Platelet Volume 7.9, Neutrophils (%) (Auto) , Lymphocytes (%) (Auto) , Monocytes (%) (Auto) , Eosinophils (%) (Auto) , Basophils (%) (Auto) , Differential Total Cells Counted 100, Neutrophils % (Manual) 13L, Lymphocytes % (Manual) 68H, Monocytes % (Manual) 10, Eosinophils % (Manual) 0, Basophils % (Manual) 0, Metamyelocytes % 1H, Band Neutrophils 8, Nucleated Red Blood Cells 22, Platelet Estimate DecreasedL, Platelet Morphology Normal, Polychromasia 1+, Hypochromasia 2+, Poikilocytosis 1+, Anisocytosis 2+, Macrocytosis 3+, Prothrombin Time 27.4H, Prothromb Time International Ratio 2.7H , Activated Partial Thromboplast Time 80H, D-Dimer 1.95H, Thyroid Stimulating Hormone (TSH) 0.199L, Free Thyroxine 0.20L 07/25/20 12:18: Urine Color Brown, Urine Appearance Slightly cloudy, Urine pH 5, Urine Specific [place] 1.010, Urine Protein 2+H, Urine Glucose (UA) Negative, Urine Ketones N egative, Urine Blood 1+H, Urine Nitrite Negative, Urine Bilirubin 2+H, Urine Ictotest Positive, Urine Urobilinogen 1H, Urine Leukocyte Esterase 1+H, Urine RBC 2-4H, Urine WBC 2-4, Urine Squamous Epithelial Cells ModerateH, Urine Bacteria Few, Urine Hyaline Casts 2-4H, Urine Mucus FewH, Urine Eosinophils None seen, Urine Random Sodium 42, Urine Potassium Timed 27 07/25/20 13:01: Lactic Acid Level 15.60H Height (Feet): 5 Height (Inches): 3.00 Weight (Pounds): 150 General Appearance: lethargic EENT: PERRL/EOMI Neck: normal alignment Cardiovascular: bradycardia Respiratory/Chest: decreased breath sounds Abdomen: hypoactive bowel sounds, distended Extremities: non-tender Assessment/Plan Problem List: (1) SBO (small bowel obstruction) ICD Codes: K56.609 - Unspecified intestinal obstruction, unspecified as to partial versus complete obstruction SNOMED: 864312215 (2) Hypotension ICD Codes: I95.9 - Hypotension, unspecified SNOMED: 77379789 (3) ARF (acute renal failure) ICD Codes: N17.9 - Acute kidney failure, unspecified SNOMED: 33017240 (4) Hypothyroid ICD Codes: E03.9 - Hypothyroidism, unspecified SNOMED: 00870720 (5) Lactic acid acidosis ICD Codes: E87.2 - Acidosis SNOMED: 90347316 (6) Pancytopenia ICD Codes: D61.818 - Other pancytopenia SNOMED: 402649593 Assessment/Plan: NGT ivf vit K fu surg recs correct electrolytes Kapil Dowd MD Jul 25, 2020 16:20
[2020-07-25] MEDS ORDERED: Phytonadione 1 MG in D5W 55 ML IVPB ONE (16:30)
[2020-07-25] MEDS ORDERED: DAPTOmycin 400 MG in NS 55 ML IV SCH (17:00)
[2020-07-25] MEDS ORDERED: Dextrose 10% 1,000 ML IV SCH (18:24)
--- NOTE | 2020-07-25 19:03 | Emergency Room Report ---
History of Present Illness General Chief Complaint: Abnormal Labs Source: Patient, Medical Record, PMD Present Illness Allergies: Coded Allergies: No Known Allergies (Unverified , 07/25/20) COVID-19 Screening Contact w/high risk pt: No Experienced COVID-19 symptoms?: No COVID-19 Testing performed ANIMAL NURSE: No COVID-19 Screening: Negative COVID-19 Patient History Last Menstrual Period: na Now: No Nursing Documentation-PMH Past Medical History: No Stated History Physical Exam Vital Signs Date Time Temp Pulse Resp B/P (MAP) Pulse Ox O2 Delivery O2 Flow Rate FiO2 07/25/20 09:05 97.5 127 20 88/62 (71) 98 Room Air 07/25/20 09:20 4.0 Procedures CPR/Code Blue CPR/Code Blue Narrative I was contacted to evaluate patient for cardiac arrest. Patient was noted to be on max dose pressors. Had markedly elevated lactic acid level. Patient was given multiple medications and intubated for airway protection. Had subsequent return of spontaneous circulation after medications. See code sheet for full details. Patient was noted on D50 due to hypoglycemia. Nursing staff was to place patient on a D10 drip at 125 an hour. Intubation Intubation : Consent: Emergent Intubation Method: orotracheal Tube Size (cm): 7.5 Breath Sounds after Intubation: equal Intubation Complications: no complications Attempts: One Complications: None Medical Decision Making Diagnostic Impression: Primary Impression: SBO (small bowel obstruction) Additional Impressions: ARF (acute renal failure) Hypothyroid Lactic acid acidosis Pancytopenia Hypotension Labs Test 07/25/20 09:55 07/25/20 10:26 07/25/20 10:47 07/25/20 12:18 Sodium Level 134 MMOL/L (136-145) Potassium Level 3.5 MMOL/L (3.5-5.1) Chloride Level 100 MMOL/L (98-107) Carbon Dioxide Level 17 MMOL/L (21-32) Anion Gap 17 mmol/L (5-15) Blood Urea Nitrogen 7 mg/dL (7-18) Creatinine 2.2 MG/DL (0.55-1.30) Estimat Glomerular Filtration Rate 28.1 mL/min (>60) Glucose Level 299 MG/DL (74-106) Uric Acid 8.7 MG/DL (2.6-7.2) Calcium Level 7.1 MG/DL (8.5-10.1) Phosphorus Level 3.4 MG/DL (2.5-4.9) Magnesium Level 1.6 MG/DL (1.8-2.4) Ferritin 765 NG/ML (8-388) Total Bilirubin 6.2 MG/DL (0.2-1.0) Direct Bilirubin 5.7 MG/DL (0.0-0.3) Aspartate Amino Transf (AST/SGOT) 37 U/L (15-37) Alanine Aminotransferase (ALT/SGPT) 27 U/L (12-78) Alkaline Phosphatase 286 U/L (46-116) Lactate Dehydrogenase 211 U/L (81-234) Total Creatine Kinase 21 U/L (26-308) Creatine Kinase MB 0.7 NG/ML (0.0-3.6) Creatine Kinase MB Relative Index 3.3 Troponin I 0.002 ng/mL (0.000-0.056) C-Reactive Protein, Quantitative 21.0 mg/dL (0.00-0.90) Pro-B-Type Natriuretic Peptide > 07097 pg/mL (0-125) Total Protein 2.9 G/DL (6.4-8.2) Albumin 0.8 G/DL (3.4-5.0) Globulin 2.1 g/dL Albumin/Globulin Ratio 0.4 (1.0-2.7) Lipase 10 U/L (73-393) POC Whole Blood Glucose 160 MG/DL (74-106) White Blood Count 1.0 K/UL (4.8-10.8) Red Blood Count 2.20 M/UL (4.20-5.40) Hemoglobin 7.5 G/DL (12.0-16.0) Hematocrit 24.2 % (37.0-47.0) Mean Corpuscular Volume 110 FL (80-99) Mean Corpuscular Hemoglobin 33.9 PG (27.0-31.0) Mean Corpuscular Hemoglobin Concent 30.9 G/DL (32.0-36.0) Red Cell Distribution Width 20.6 % (11.6-14.8) Platelet Count 56 K/UL (150-450) Mean Platelet Volume 7.9 FL (6.5-10.1) Neutrophils (%) (Auto) % (45.0-75.0) Lymphocytes (%) (Auto) % (20.0-45.0) Monocytes (%) (Auto) % (1.0-10.0) Eosinophils (%) (Auto) % (0.0-3.0) Basophils (%) (Auto) % (0.0-2.0) Differential Total Cells Counted 100 Neutrophils % (Manual) 13 % (45-75) Lymphocytes % (Manual) 68 % (20-45) Monocytes % (Manual) 10 % (1-10) Eosinophils % (Manual) 0 % (0-3) Basophils % (Manual) 0 % (0-2) Metamyelocytes % 1 % (0-0) Band Neutrophils 8 % (0-8) Nucleated Red Blood Cells 22 /100 WBC Platelet Estimate Decreased Platelet Morphology Normal Polychromasia 1+ Hypochromasia 2+ Poikilocytosis 1+ Anisocytosis 2+ Macrocytosis 3+ Prothrombin Time 27.4 SEC (9.30-11.50) Prothromb Time International Ratio 2.7 (0.9-1.1) Activated Partial Thromboplast Time 80 SEC (23-33) D-Dimer 1.95 mg/L FEU (0.00-0.49) Thyroid Stimulating Hormone (TSH) 0.199 uiU/mL (0.358-3.740) Free Thyroxine 0.20 NG/DL (0.76-1.46) Urine Color Brown Urine Appearance Slightly cloudy Urine pH 5 (4.5-8.0) Urine Specific [place] 1.010 (1.005-1.035) Urine Protein 2+ (NEGATIVE) Urine Glucose (UA) Negative (NEGATIVE) Urine Ketones Negative (NEGATIVE) Urine Blood 1+ (NEGATIVE) Urine Nitrite Negative (NEGATIVE) Urine Bilirubin 2+ (NEGATIVE) Urine Ictotest Positive (NEGATIVE) Urine Urobilinogen 1 MG/DL (0.0-1.0) Urine Leukocyte Esterase 1+ (NEGATIVE) Urine RBC 2-4 /HPF (0 - 2) Urine WBC 2-4 /HPF (0 - 2) Urine Squamous Epithelial Cells Moderate /LPF (NONE/OCC) Urine Bacteria Few /HPF (NONE) Urine Hyaline Casts 2-4 /LPF (NONE) Urine Mucus Few /LPF (NONE/OCC) Urine Eosinophils None seen (NONE SEEN) Urine Random Sodium 42 mmol/L (20-110) Urine Potassium Timed 27 mmol/L (12-62) Test 07/25/20 13:01 Lactic Acid Level 15.60 mmol/L (0.66-2.22) Last Vital Signs Date Time Temp Pulse Resp B/P (MAP) Pulse Ox O2 Delivery O2 Flow Rate FiO2 07/25/20 18:26 75 16 74/28 (43) 89 07/25/20 16:40 100.0 07/25/20 16:00 96.1 07/25/20 14:54 Nasal Cannula Disposition: ADMITTED INPATIENT Condition: Critical Scripts Unable to Obtain Active Prescriptions or Reported Meds Referrals: NON PHYSICIAN (PCP) Felix Galicia MD Jul 25, 2020 19:03
--- NOTE | 2020-07-25 19:20 | History & Physical ---
History and Physical History & Physicial Patient prior my arrival I did not see the patient Domingo Maldonado MD Jul 25, 2020 19:20
--- NOTE | 2020-07-25 19:39 | Diagnostic Imaging Report ---
EXAM: XR Chest, 1 View CLINICAL HISTORY: S/P INTUB TECHNIQUE: Frontal view of the chest. COMPARISON: Same day at 1010 hrs. FINDINGS: Lungs: Moderate to large amount airspace opacities in both lungs, more on the right, new from the prior study. Pleural space: Unremarkable. No pneumothorax. Heart: Unremarkable. No cardiomegaly. Mediastinum: Unremarkable. Bones/joints: Unremarkable. Tubes, lines and devices: Tip of endotracheal tube is about 2 cm into right main bronchus. Tip of right jugular central venous catheter is likely in the right atrium, about 7.5 cm below the level of the kim. IMPRESSION: 1. Tip of endotracheal tube is about 2 cm into right main bronchus. Recommend pull up by about 4-5 cm. 2. Moderate to large amount airspace opacities in both lungs, more on the right, new from the prior study. Differential includes aspiration, pneumonia and asymmetrical pulmonary edema <MYCVCSECTION> Communications: 07/25/20 19:56 Verify Receipt with Nurse Verified receipt with ICU nurse Elham on 07/25 19:56 (-07:00)
[2020-07-25] MEDS ORDERED: Atropine Inj 1mg/10ml Syr ONE ×2 (19:58)
[2020-07-25] MEDS ORDERED: Magnesium Sulfate 2ml Inj ONE ×2 (19:58)
[2020-07-25] MEDS ORDERED: Sodium Bicarbonate 8.4% 50ml Inj ONE ×2 (19:58)
--- NOTE | 2020-07-25 20:09 | Emergency Room Report ---
History of Present Illness General Chief Complaint: Abnormal Labs Source: Patient, Medical Record, PMD Present Illness Allergies: Coded Allergies: No Known Allergies (Unverified , 07/25/20) COVID-19 Screening Contact w/high risk pt: No Experienced COVID-19 symptoms?: No COVID-19 Testing performed MICROWAVE ENGINEER: No COVID-19 Screening: Negative COVID-19 Patient History Last Menstrual Period: na Now: No Nursing Documentation-PMH Past Medical History: No Stated History Hx Cardiac Problems: No Hx Cancer: No Hx Neurological Problems: No Physical Exam Vital Signs Date Time Temp Pulse Resp B/P (MAP) Pulse Ox O2 Delivery O2 Flow Rate FiO2 07/25/20 09:05 97.5 127 20 88/62 (71) 98 Room Air 07/25/20 09:20 4.0 Procedures CPR/Code Blue CPR/Code Blue Narrative Was contacted to evaluate for the patient for cardiac arrest. Patient with prior history of severe sepsis and hypoglycemia. Patient had ET tube adjusted prior to onset of cardiac arrest. Patient was noted to have no response to multiple medications and attempted pacing. D50 was given and patient had persistent asystole. Patient was pronounced at 1959. Family was notified of the patient's . Medical Decision Making Diagnostic Impression: Primary Impression: SBO (small bowel obstruction) Additional Impressions: ARF (acute renal failure) Hypothyroid Lactic acid acidosis Pancytopenia Hypotension Last Vital Signs Date Time Temp Pulse Resp B/P (MAP) Pulse Ox O2 Delivery O2 Flow Rate FiO2 07/25/20 19:02 69 18 90/74 (79) 89 07/25/20 16:40 100.0 07/25/20 16:00 Nasal Cannula 07/25/20 16:00 96.1 Disposition: ADMITTED INPATIENT Condition: Critical Scripts Unable to Obtain Active Prescriptions or Reported Meds Referrals: NON PHYSICIAN (PCP) Felix Galicia MD Jul 25, 2020 20:09
[2020-07-25] MEDS ORDERED: Micafungin 100 MG in NS 110 ML IVPB SCH (21:00)
[2020-07-25] MEDS ORDERED: Heparin 5000 units/ml inj SUBQ SCH (21:00)
[2020-07-26] MEDS ORDERED: Pantoprazole Inj IVP SCH (09:00)
--- NOTE | 2020-07-29 07:48 | Discharge Summary ---
Discharge Summary Discharge Summary _ SUMMARY DATE OF ADMISSION: 07/25/2020 DATE OF EXPIRATION: 07/25/2020 REASON FOR ADMISSION: 55 years old female , with prior history of bowel obstruction, s/p surgery in november 2019, presented to emergency department for critically low blood sugar. Blood sugar was 31. She was given oral glucose and glucagon by paramedics. On arrival patient was sleepy , but arousable to answer simple questions. Patient was unable to provide a detailed history. Emergency room physician contacted patient's daughter , who lives with her. According to daughter her mother was in normal state of health, until November when she developed a bowel obstruction, admitted to [facility] and undergone bowel surgery. Since that time she had difficulty with oral intake. Patient was in the rehabilitation facility prior. Over the past week she stopped eating as before. Per daughter patient had" upper GI issue", but she was not able to articulate what type of the" upper GI issue". Patient herself complained of cramping in her legs. Upon evaluation patient was tachycardic with heart rate 127 and hypotensive with blood pressure 88/62 . No fever, pulse oximetry was stable on room air. Laboratory work-up revealed BUN 7 , creatinine 2.2. Lactic acid 15.8. Magnesium 1.6. Calcium 7.1. Stable LFT and lipase. Troponin negative , proBNP >35,000 . EKG revealed atrial flutter with rapid ventricular response CRP 21. WBC 1, hemoglobin 7.5, hematocrit 24.2 , platelet count 56. D-dimer 1.95. INR 2.7 Urinalysis revealed +2 protein, +2 bilirubin, borderline pyuria and few bacteria. CT of the abdomen and pelvis revealed small bowel obstruction. Severe fatty liver. Cutaneous soft tissue edema along the flanks and in the abdominal wall s, uggestive of anasarca. NG tube was placed . KUB showed satisfactory nasogastric intubation and dilated small bowel loops , likely related to small bowel obstruction . Chest x-ray revealed some atelectatic changes in bilateral pedicular region. No definite infiltrate effusion or congestion. No pneumothorax. Rapid COVID-19 was negative. Influenza screen was negative. Patient pancultured , received fluids ,empiric antibiotics ,started on pressors . Patient subsequently admitted to ICU with small bowel obstruction ,hypotension ,lactic acid acidosis ,acute renal failure, and pancytopenia. CONSULTANTS: ID specialist Dr. Lozano GI specialist Dr. Dowd surgery Dr. Ceballos [facility] COURSE: Patient admitted to ICU. Pressor titrated to keep mean arterial blood pressure above 65. Patient was kept n.p.o. with NG tube to suction. IV hydration provided. DVT and GI prophylaxis provided. Surgeon and GI seen and evaluated patient . Empiric antibiotic provided as per ID specialist : patient was on daptomycin , meropenem and micafungin. At the time of this dictation blood culture revealed growth of E. coli. Repeated lactic acid still elevated 15.6 . Electrolytes were corrected. KUB was ordered for the morning . Patient received vitamin K x1 . While in ICU patient suffered cardiac arrest . At that time patient was on maximal dose of Levophed . ACLS protocol initiated. Patient was orally intubated with subsequent return of spontaneous circulation Patient noted to be hypoglycemic, received D50 and started on D10 drip. Later patient sustained another cardiac arrest. ACLS protocol initiated. Unfortunately all interventions appeared to be futile, patient remained in asystole. Patient was pronounced at 19:59 on 07/25. Cause of : cardiopulmonary arrest FINAL DIAGNOSES: Status post cardiopulmonary arrest Acute respiratory failure requiring intubation Septic shock E coli bacteremia Small bowel obstruction Pancytopenia Acute renal failure/acute kidney injury due to hypotension Severe hypoglycemia Lactic acidosis Coagulopathy I have been assigned to dictate discharge summary for this account. I was not involved in the patient's management. Meme Terrell NP Jul 29, 2020 07:48
== END 2020-07-25 19:59 | disposition expired | DRG 720 ==
LOC: EDBD 09:12 → EMR 09:20 → CANBEDREQ 09:34 → EDBEDREQ 11:39 → EDBEDREQSVC 11:39 → ICU 12:18 → EDBEDREQ 13:18
PROC: 0BH17EZ Insertion of Endotracheal Airway into Trachea, Via Natural or Artificial Opening (ICD-10-PCS; principal; 2020-07-25)
PROC: 05HM33Z Insertion of Infusion Device into Right Internal Jugular Vein, Percutaneous Approach (ICD-10-PCS; 2020-07-25)
DX: A41.9 Sepsis, unspecified organism (principal); R65.21 Severe sepsis with septic shock; K56.609 Unspecified intestinal obstruction, unspecified as to partial versus complete obstruction; D61.818 Other pancytopenia; Z98.84 Bariatric surgery status; E89.0 Postprocedural hypothyroidism; Y83.9 Surgical procedure, unspecified as the cause of abnormal reaction of the patient, or of later complication, without mention of misadventure at the time of the procedure; K76.0 Fatty (change of) liver, not elsewhere classified; E16.2 Hypoglycemia, unspecified; I95.9 Hypotension, unspecified; N17.9 Acute kidney failure, unspecified; J96.00 Acute respiratory failure, unspecified whether with hypoxia or hypercapnia; E03.9 Hypothyroidism, unspecified; R79.1 Abnormal coagulation profile; R62.7 Adult failure to thrive; Z20.828 Contact with and (suspected) exposure to other viral communicable diseases; I46.9 Cardiac arrest, cause unspecified
CPT/HCPCS: 31500; 36415; 71045; 74018; 74176; 80053; 81003; 82248; 82550; 82553; 82728; 82962; 83605; 83615; 83690; 83735; 83880; 84100; 84133; 84300; 84439; 84443; 84484; 84550; 85007; 85025; 85379; 85610; 85730; 86140; 86710; 86850; 86900; 86901; 86920; 87040; 87181; 89050; 92950; 93005; 94002; 94664; 96361; 96374; 99291; J0171; U0002